=== PATIENT | female | born 1965 | race Caucasian/White ===

== ENCOUNTER 2022-07-27 07:24 | Outpatient (CLI) | payer OTHER | END 2022-07-27 07:25 | disposition home or self-care (01) | LOC: CSHNM 07:24 | PROVIDERS: ATTEND Internal Medicine | DX: R10.13 Epigastric pain (principal); K21.9 Gastro-esophageal reflux disease without esophagitis; R19.7 Diarrhea, unspecified; K74.60 Unspecified cirrhosis of liver | CPT/HCPCS: 78226; A9537 ==